=== PATIENT | female | born 1945 | race Caucasian/White ===

== ENCOUNTER → 2016-12-11 | Outpatient (CLI) | payer OTHER ==
[~2016-12-11] MED LIST: COZAAR 50 MG TA50 M2 PO; CRESTOR10 MG PO; FISH OIL 1,001000 M2 PO; LUTEIN 15 MG S1 EACH PO; UNICOMPLEX M TA1 TA1 PO; VITAMIN D1000 UNIT PO
--- NOTE | ~2016-12-11 | CARDNUC ---
[facility] [address] [place] [address] CARDIAC NUCLEAR IMAGING REPORT Name: NEETA BOYCE Room #: REG [facility]#: [id number] Admission: 12/11/16 Attend Phys: Zoran Renee Discharge: Date of : 41 Date of Service: 12/11/16 1637 Report #: [id number] THIS REPORT FOR: //name// CC: Zoran Villarreal DATE OF SERVICE: 12/11/2016 Myocardial perfusion imaging study using regadenoson DATE OF STUDY: 12/11/2016. PRIMARY CARE PHYSICIAN: Arsen Villarreal MD AUTOMATION ANALYST: Zoran Renee MD GENDER: Female. INDICATION: Dyspnea. CORONARY HISTORY: None. CARDIOVASCULAR RISK FACTORS: Age, hypertension, hyperlipidemia, and family history. CARDIAC MEDICATIONS: Include losartan, Pradaxa, and statin medication. TYPE OF STUDY: The patient underwent a SPECT study. STRESS PROTOCOL: A total of 0.4 mg of regadenoson was injected intravenously, followed by Cardiolite. The patient did not ambulate during the procedure. HEMODYNAMIC DATA: The resting heart rate was 51 beats per minute, with a blood pressure 150/70 mmHg. Following regadenoson, the heart rate increased to 75 beats per minute and the systolic blood pressure did not significantly change. The patient had symptoms consistent with regadenoson, but no chest discomfort. ELECTROCARDIOGRAM: The resting electrocardiogram reveals sinus rhythm, nonspecific T-wave abnormalities. Following regadenoson, there were no significant arrhythmias or ST segment changes. PERFUSION IMAGING: Myocardial perfusion imaging was performed using Cardiolite, 11.2 mCi for the resting images and 35.3 mCi for the stress images. This was a same-day rest-stress imaging protocol. Gated SPECT images were obtained. Comparison of the post-pharmacologic stress and rest images revealed a mild, fixed anterior defect. The gated portion of the study revealed normal global [facility] [address] [address] [place] [address] CARDIAC NUCLEAR IMAGING REPORT Name: DONATOGURPREETHALEYALEXNEETA Krystian Room #: REG [facility]#: [id number] Admission: 12/11/16 Attend Phys: Zoran Renee Discharge: Date of : 41 Date of Service: 12/11/16 1637 Report #: [id number] and segmental LV systolic function. The mild, fixed anterior defect probably represents a soft tissue artifact. IMPRESSION: 1. Clinical response, nondiagnostic. 2. Stress ECG response, nonischemic. 3. Perfusion imaging, nonischemic. 4. Ventricular function, normal. CONCLUSION: This study is of low probability for inducible ischemia or prior infarct. There is normal global and segmental LV systolic function. <ELECTRONICALLY SIGNED> By: Bakari Massey MD 12/12/16 0945 1637 1813 Bakari Massey MD /charis
== END ==
LOC: NUC 11:28
DX: R06.00 Dyspnea, unspecified (principal); I10 Essential (primary) hypertension; E78.5 Hyperlipidemia, unspecified

== ENCOUNTER 2017-04-08 06:37 | Observation (INO) | payer OTHER ==
[~2017-04-08] VITALS: Ht 0.5 cm; Wt 97.2 kg
--- NOTE | ~2017-04-08 | P ---
[facility] [place] [address] PROCEDURE REPORT Name: NEETA BOYCE Room #: 218-P [facility] M.R.#: [id number] Admission: 04/08/17 Attend Phys: Zoran Renee MD Discharge: Date of : 41 Report #: [id number] THIS REPORT FOR: //name// CC: Zoran Villarreal PROCEDURE: Pacemaker insertion. REASON FOR IMPLANTATION: 1. Sick sinus syndrome. 2. Tachycardia-bradycardia syndrome. 3. Paroxysmal atrial fibrillation. HISTORY OF PRESENT ILLNESS: The patient is a 71-year-old with a history of paroxysmal atrial fibrillation and since initiation of beta marianna and antiarrhythmic drug therapy, she has been having symptomatic bradycardia. She is here for pacemaker implantation. ANESTHESIA: The patient underwent MAC anesthesia with no anesthesia related complications. DESCRIPTION OF PROCEDURE: The patient underwent informed consent. We discussed the details of the procedure including the risks, which include, but not limited to bleeding, infection, vascular damage, cardiac perforation, and pneumothorax. She understood these risks and was willing to proceed. As such, the patient was brought to the EP laboratory in a fasting and sedated state and prepped and draped in a sterile fashion. The patient underwent a venogram showing patency of the left axillary vein. She did receive IV Ancef prior to initiation of the procedure. I injected lidocaine below the level of left clavicle. Incision was made. A pocket was created over the prepectoral fascia and then access was obtained twice in the left axillary vein using the extrathoracic approach with sheath positioned using the modified Seldinger technique. Next, leads were positioned in the right ventricular apex and right atrial appendage both with adequate pacing and sensing thresholds. The leads were sutured to the prepectoral fascia, connected to the device and then the pocket was irrigated with vancomycin solution and then closed in 3 layers using 2-0 for the deep layer, 3-0 for the middle layer, 4-0 for the subcuticular layer. Surgical glue was placed to the outer skin layer. Next, an incision was made at the area where the Medtronic implantable loop recorder had been previously placed. The device was removed from the pocket. The pocket was then closed in 1 layer and then surgical glue was placed to the outer layer. The patient awoke neurologically and hemodynamically intact. No complications and no significant bleeding. The implanted pacemaker was a [employer] model #[id number], serial #[id number], the atrial lead was a [employer] model #2088TC, 52 cm, serial #[id number] with a P-wave of 2 millivolts, pacing impedance of 510 ohms and a pacing threshold of 1.25 volts at 1 millisecond. The RV lead was a [facility] [address] [place] [address] PROCEDURE REPORT Name: NEETA BOYCE Room #: 218-P [facility] M.R.#: [id number] Admission: 04/08/17 Attend Phys: Zoran Renee MD Discharge: Date of : 41 Report #: [id number] [employer] model #2088TC, 58 cm, serial #[id number] with an R-wave of 7.5 millivolts, the pacing impedance of 540 ohms and the pacing threshold 0.75 volts at 0.4 milliseconds. The device was programmed to the DDDR 60-130 mode. CONCLUSIONS: 1. Successful pacemaker implantation. 2. Satisfactory atrial and ventricular pacing and sensing thresholds. 3. Successful explantation of a Medtronic implantable loop recorder. <ELECTRONICALLY SIGNED> By: Zoran Renee MD 04/08/17 1359 1032 1304 Zoran Renee MD /nt
--- NOTE | ~2017-04-08 | D ---
[facility] [place] [address] DISCHARGE SUMMARY Name: NEETA BOYCE Room #: 218-P [facility].RWarner#: [id number] Admission: 04/08/17 Attend Phys: Zoran Renee MD Discharge: Date of : 41 Report #: [id number] THIS REPORT FOR: //name// CC: Zoran Renee [facility] DISCHARGE DIAGNOSES: Atrial fibrillation, sick sinus syndrome, symptomatic bradycardia. PROCEDURES PERFORMED: Dual chamber pacemaker insertion. HISTORY OF PRESENT ILLNESS: The patient is a 71-year-old with history of paroxysmal AFib, who has developed sick sinus syndrome as we have uptitrated her antiarrhythmic drugs. She is here for dual chamber pacemaker insertion. Device implant was successful without complications. HOSPITAL COURSE: The patient was monitored overnight, received IV antibiotics. On telemetry, she remained in sinus rhythm with an atrial paced rhythm. The following day, her device was checked and her device check was normal except for diminishment in her P-wave size. Her chest x-ray showed stable lead position with no pneumothorax. As such, she was deemed stable for discharge home. She was instructed to increase her flecainide to 100 b.i.d. and start metoprolol 25 b.i.d. I instructed her to resume her Pradaxa on Saturday. She will follow up in 7-10 days for a device and wound check. Discharge instructions were reviewed. By: 0836 0920 Zoran Renee MD /charis
[2017-04-08 07:00] VITALS: BP 155/75
[2017-04-08 07:09] LABS: HEMATOCRIT 38.7 % (37.0-47.0); HEMOGLOBIN 12.9 gm/dL (12.0-15.0); MCH 30.5 pg (26.0-34.0); MCHC 33.4 g/dL (28.0-37.0); MCV 91.5 fL (80.0-100.0); PLATELET COUNT 239 thou/uL (150-400); RBC 4.23 mil/uL (4.20-5.00); RDW 13.8 % (10.5-14.5); WBC 4.7 thou/uL (4.0-11.0)
[2017-04-08 07:12] LABS: MANUAL DIFF YES
[2017-04-08 07:18] LABS: CALCIUM 9.7 mg/dL (8.5-10.1); POTASSIUM 3.9 mmol/L (3.5-5.1)
[2017-04-08 07:22] LABS: APTT 24.7 Seconds (24.5-32.8); PROTIME 10.2 Seconds (9.3-11.4)
[2017-04-08 07:23] LABS: ALBUMIN 3.9 g/dL (3.4-5.0); TOTAL BILIRUBIN 0.5 mg/dL (<0.1-1.0); TOTAL PROTEIN 7.7 g/dL (6.4-8.2)
[2017-04-08 07:42] LABS: ABSOLUTE NEUTROPHILS 2.2 thou/uL (1.4-8.2); ANISOCYTOSIS 1+; OVALOCYTES 1+; TOTAL CELL COUNT 100
[2017-04-08 11:44] VITALS: BP 179/97
[2017-04-08 20:03] VITALS: BP 127/66
[2017-04-08 23:21] VITALS: BP 136/78
[2017-04-09 04:30] VITALS: BP 131/76
[2017-04-09 07:20] VITALS: BP 154/77
[2017-04-09] MEDS ORDERED: TAMBOCOR 100 M100 M1 PO (08:22)
[2017-04-09] MEDS ORDERED: LOPRESSOR25 PO (08:23)
[2017-04-09 09:04] VITALS: BP 154/77
== END 2017-04-09 10:55 | disposition home or self-care (01) ==
LOC: CV 06:37 → 2N 11:18
PROVIDERS: Internal Medicine Cardiovascular Disease
DX: I49.5 Sick sinus syndrome (principal); I48.0 Paroxysmal atrial fibrillation; I49.9 Cardiac arrhythmia, unspecified; E78.5 Hyperlipidemia, unspecified; I10 Essential (primary) hypertension
CPT/HCPCS: 70005

== ENCOUNTER → 2017-11-26 | Outpatient (CLI) | payer OTHER ==
[~2017-11-26] MED LIST changes: +LOPRESSOR25 PO; +TAMBOCOR 100 M100 M1 PO
== END ==
LOC: RAD 14:43
DX: M47.894 Other spondylosis, thoracic region (principal)

== ENCOUNTER → 2020-05-11 | Outpatient (CLI) | payer OTHER | LOC: SJCVC 14:37 | PROVIDERS: ATTEND Internal Medicine Cardiovascular Disease | DX: Z45.018 Encounter for adjustment and management of other part of cardiac pacemaker (principal); I48.0 Paroxysmal atrial fibrillation; I49.5 Sick sinus syndrome; G47.33 Obstructive sleep apnea (adult) (pediatric); E78.00 Pure hypercholesterolemia, unspecified; J44.9 Chronic obstructive pulmonary disease, unspecified; R94.31 Abnormal electrocardiogram [ECG] [EKG]; Z79.899 Other long term (current) drug therapy; Z87.891 Personal history of nicotine dependence ==

== ENCOUNTER → 2020-09-20 | Outpatient (CLI) | payer OTHER | LOC: RAD 12:06 | PROVIDERS: ATTEND Pediatrics | DX: J44.9 Chronic obstructive pulmonary disease, unspecified (principal); R06.00 Dyspnea, unspecified ==

== ENCOUNTER → 2021-05-16 | Outpatient (CLI) | payer OTHER | LOC: SJCVC 11:42 | PROVIDERS: ATTEND Internal Medicine Cardiovascular Disease | DX: I48.0 Paroxysmal atrial fibrillation (principal); I47.1 Supraventricular tachycardia; R00.1 Bradycardia, unspecified; G47.33 Obstructive sleep apnea (adult) (pediatric); J44.9 Chronic obstructive pulmonary disease, unspecified; I10 Essential (primary) hypertension; E78.00 Pure hypercholesterolemia, unspecified; Z95.0 Presence of cardiac pacemaker; Z79.899 Other long term (current) drug therapy; Z87.891 Personal history of nicotine dependence; Z72.89 Other problems related to lifestyle ==

== ENCOUNTER → 2021-06-27 | Outpatient (CLI) | payer OTHER ==
[~2021-06-27] MED LIST changes: +FLECAINIDE ACET50 M2 PO; +PRADAXA150 MG PO
[2021-06-27 10:02] LABS: ABSOLUTE NEUTROPHILS 3.4 thou/uL (1.4-8.2); BASOPHILS 0.8 % (0.0-2.0); EOSINOPHILS 2.2 % (0.0-3.0); HEMATOCRIT 37.1 % (37.0-47.0); HEMOGLOBIN 12.5 gm/dL (12.0-15.0); LYMPHOCYTES 24.5 % (24.0-44.0); MCH 31.3 pg (26.0-34.0); MCHC 33.7 g/dL (28.0-37.0); MCV 92.7 fL (80.0-100.0); MONOCYTES 13.6 % (1.0-8.0); PLATELET COUNT 276 thou/uL (150-400); POLYS 58.9 % (36.0-66.0); WBC 5.7 thou/uL (4.0-11.0)
[2021-06-27 10:22] LABS: ALBUMIN 3.7 g/dL (3.4-5.0); CALCIUM 9.8 mg/dL (8.5-10.1); CREATININE 1.1 mg/dL (0.6-1.0); POTASSIUM 4.2 mmol/L (3.5-5.1); TOTAL BILIRUBIN 0.6 mg/dL (0.2-1.0); TOTAL PROTEIN 7.2 g/dL (6.4-8.2)
== END ==
LOC: CAT 09:21
PROVIDERS: ATTEND Internal Medicine Cardiovascular Disease
DX: I25.10 Atherosclerotic heart disease of native coronary artery without angina pectoris (principal); M47.814 Spondylosis without myelopathy or radiculopathy, thoracic region; I48.91 Unspecified atrial fibrillation; Z95.0 Presence of cardiac pacemaker

== ENCOUNTER 2021-06-29 06:30 | Observation (INO) | payer OTHER ==
[~2021-06-29] VITALS: Ht 172.7 cm; Wt 86.2 kg
[~2021-06-29 06:30] MED LIST changes: -FLECAINIDE ACET50 M2 PO; -PRADAXA150 MG PO
[2021-06-29 07:31] VITALS: BP 128/60
[2021-06-29] MEDS ORDERED: PRADAXA150 MG PO (07:56)
[2021-06-29] MEDS ORDERED: FLECAINIDE ACET50 M2 PO (07:56)
[2021-06-29 08:14] LABS: ABSOLUTE NEUTROPHILS 3.3 thou/uL (1.4-8.2); BASOPHILS 0.5 % (0.0-2.0); EOSINOPHILS 2.5 % (0.0-3.0); HEMATOCRIT 35.8 % (37.0-47.0); LYMPHOCYTES 20.9 % (24.0-44.0); MCH 30.8 pg (26.0-34.0); MCHC 33.4 g/dL (28.0-37.0); MCV 92.4 fL (80.0-100.0); MONOCYTES 14.1 % (1.0-8.0); PLATELET COUNT 260 thou/uL (150-400); RBC 3.88 mil/uL (4.20-5.00); RDW 13.9 % (10.5-14.5); WBC 5.2 thou/uL (4.0-11.0)
[2021-06-29 08:23] LABS: CALCIUM 9.3 mg/dL (8.5-10.1); CREATININE 1.1 mg/dL (0.6-1.0); POTASSIUM 4.1 mmol/L (3.5-5.1)
[2021-06-29 08:27] LABS: APTT 24.8 Seconds (24.5-32.8); INR 1.01
[2021-06-29 08:29] LABS: ALBUMIN 3.6 g/dL (3.4-5.0); TOTAL BILIRUBIN 0.6 mg/dL (0.2-1.0)
[2021-06-29 18:00] VITALS: BP 123/68
--- NOTE | 2021-06-29 18:25 | NUR ---
PT ARRIVED TO UNIT FROM CV HOLDING AT 1750. PT A/O X 4. ORIENTED TO ROOM AND UNIT. PLACED ON TELE MONITOR AND UPDATED ON POC. AFIB ABLATION COMPLETED- HEMOSTASIS OBTAINED AT 1230. PT OFF BEDREST. VSS. GROIN SITE DRESSING C/D/I, NO HEMATOMA. WILL CONT TO MONITOR.
[2021-06-29 20:15] VITALS: BP 113/60
[2021-06-30 00:05] VITALS: BP 146/80
[2021-06-30 04:45] VITALS: BP 120/70
--- NOTE | 2021-06-30 05:04 | NUR ---
PT IS ALERT AND ORIENTED X4. LUNGS ARE CLEAR. ON ROOM AIR. NO EDEMA NOTED 2/2 PULSES NOTED. UP AD MANISH IN ROOM. RIGHT GROIN SITE CLEAN DRY AND INTACT NO EDMA NOTED. DENIES ANY PAIN WHEN ASKED. ONGOING NURISNG CARE. AND CALL LIGHT WITHIN REACH IF NEEDS NURSING ASSISTANCE PER STAFF.
[2021-06-30 08:45] VITALS: BP 165/82
--- NOTE | 2021-06-30 09:20 | NUR ---
cm completed the initial assessment. pt lives in [facility] in [facility] that has an elevator. pt is independent with adls. pt is active, as evidenced by, "i lead an exercise class." pt denies hx with hh or snf. pt uses no dmes. cm to cont to follow to assist w/ dc plan as needed.
[2021-06-30 10:21] VITALS: BP 165/82
[2021-06-30 10:49] VITALS: BP 165/82
--- NOTE | 2021-07-03 15:45 | P ---
[facility] [place] [address] PROCEDURE REPORT Name: NEETA BOYCE Room #: 218-P [facility] Natasha Caraballo#: [id number] Admission: 06/29/21 Attend Phys: Zoran Renee MD Discharge: 06/30/21 Date of : 41 Report #: [id number] THIS REPORT FOR: cc: Arsen Villarreal MD, [place] S. MD Couchonnal, Luis F. MD ~ DATE OF SERVICE: 06/30/2021 ATRIAL FIBRILLATION AND SVT ABLATION PREOPERATIVE DIAGNOSES: 1. Paroxysmal fibrillation. 2. Sick sinus syndrome, status post pacemaker implantation. POSTOPERATIVE DIAGNOSES: 1. Paroxysmal atrial fibrillation. 2. Sick sinus syndrome, status post pacemaker implantation. 3. Typical AV marylou reentrant tachycardia. PROCEDURE PERFORMED: 1. Atrial fibrillation ablation -- CPT code 90112. 2. Program stimulation pacing after IV drug infusion, CPT code 58125. 3. 3D mapping, CPT code 28066. 4. Intracardiac echo. 5. Second pathway ablation -- CPT code 47658. 6. Preprocedural pacemaker reprogramming, CPT code 93364. 7. Post-procedural pacemaker reprogramming, CPT code 27591. HISTORY: The patient occlusive is a 75-year-old female with history of paroxysmal atrial fibrillation as well as sick sinus syndrome, status post [employer] pacemaker implantation several years ago. The patient has been having increased episodes of AFib and has intolerance to flecainide who is here for AFib ablation. ANESTHESIA: The patient underwent general anesthesia with no anesthesia related complications. DESCRIPTION OF PROCEDURE: The patient underwent informed consent. We discussed the details of the procedure including the risks, which include but not limited to bleeding, infection, vascular damage, cardiac perforation, damage to the menominee conduction system requiring permanent pacemaker. She understood these risks and is willing to proceed. The patient was brought to the EP laboratory in a fasting and sedated state and prepped and draped in a sterile fashion. Her pacemaker was reprogrammed to AAI 60 mode. Next, I obtained access to the right femoral vein x 3, placing an 8, 9 [facility] [address] [place] [address] PROCEDURE REPORT Name: CARLINEETA Boland Room #: 218-P [facility]#: [id number] Admission: 06/29/21 Attend Phys: Zoran Renee MD Discharge: 06/30/21 Date of : 41 Report #: [id number] and 7-Azerbaijani short sheath using the modified Seldinger technique. Next, under fluoroscopy, a decapolar catheter was placed in the coronary sinus for left atrial pacing and recording. An ICE catheter was placed in the right atrium. Intracardiac ultrasound demonstrated that there were two left and two right pulmonary veins. These images were merged with the cardiac CT scan. The patient was in sinus rhythm during the procedure. The patient was systemically heparinized and a transseptal was performed using an SL1 sheath and a [place]araka needle. This was straightforward and then I exchanged cryosheath and placed the Lasso catheter into the left atrium. Next, a 3D geometry of the left atrium was created using the CARTO. Next, I started by isolating the pulmonary veins using the cryoablation balloon. The left superior pulmonary vein underwent a 4-minute freeze and isolated at 30 seconds. The left inferior pulmonary vein underwent a 4-minute freeze and isolated at 50 seconds, the right superior pulmonary vein underwent initial 85 second freeze, but the phrenic nerve weakened, so I came off. I moved to the right inferior pulmonary vein and performed a 4-minute freeze and this vein isolated at 50 seconds. I came back to the right superior pulmonary vein, which had returned to full strength and I performed a single 3-minute freeze. It appears that the vein had already isolated during the first freeze. Next, I started creating a repeat voltage map of the left atrium, which showed all pulmonary veins were isolated, but catheter manipulation resulted in episodes of SVT. I was able to move my decapolar catheter back in the coronary sinus and this appeared to be consistent with typical AV marylou reentrant tachycardia. I therefore removed my ICE catheter and placed an RV catheter into the right ventricle. I therefore performed a basic EP study and the patient had a inducible typical AV marylou reentry tachycardia. Tachycardia cycle length was 500 milliseconds, septal VA time was 35 milliseconds and a VAHV response was demonstrated multiple times. Her SVT was easily inducible and actually very difficult to terminate even with ventricular pacing down to 300 milliseconds. She would keep going back into it. Therefore, I had to pace the atrium at around 250 milliseconds just to terminate this and during ablation, she would easily go into AVNRT as well. TYPICAL AV MARYLOU REENTRANT TACHYCARDIA ABLATION: Next, I removed the cryosheath and exchanged this for a 14-Azerbaijani short sheath and placed in SR0 sheath and a 4 mm [employer] Aranda ablation catheter into the right atrium. Detailed geometry of the right atrium was created and ablation was performed at 50 de leon and 55 degrees. My first three lesions gave me very good junctionals and therefore, I performed testing; however, she was easily inducible again. I performed 4 additional ablation lesions and again these all had great junctional response that were slow and it appeared that we were burning at the perfect spot. I did perform testing again and I could not induce SVT, but she was having double AV marylou echoes. Therefore, I performed a 3 additional ablation lesions at essentially the same spot each with great junctional responses again. A basic EP study was therefore performed again and AV block was noted at 420 [facility] [address] [place] [address] PROCEDURE REPORT Name: NEETA BOYCE Room #: 218-P [facility] Natasha Caraballo#: [id number] Admission: 06/29/21 Attend Phys: Zoran Renee MD Discharge: 06/30/21 Date of : 41 Report #: [id number] milliseconds. AV marylou ERP was 340 milliseconds at [address] cycle length. VA block was noted at 410 milliseconds. Ventricular ERP was noted at 260 milliseconds at a [address] cycle length. Isoproterenol infusion was initiated at 1 mcg per minute and aggressive pacing was again performed. AV block was noted at 290 milliseconds. Atrial ERP was noted at 260 milliseconds at a [address] cycle length. We paced for approximately 30 minutes and she was no longer inducible. As such, the procedure was concluded, she was in sinus rhythm, sinus cycle length of 815 milliseconds, CT interval 185 milliseconds, QRS duration 81 milliseconds, QT interval 450 milliseconds. Catheters and sheaths were pulled. Hemostasis obtained. The patient awoke neurologically and hemodynamically intact. No complications. No significant bleeding. CONCLUSION: 1. Successful atrial fibrillation ablation with isolation of the pulmonary veins. 2. Successful ablation of typical AV maryolu reentrant tachycardia. 3. Normal SA marylou function. 4. Normal AV marylou function. 5. Normal His-Purkinje function. 6. Successful pre and post-pacemaker reprogramming. <ELECTRONICALLY SIGNED> By: Zoran Renee MD 07/03/21 1545 1058 2246 Zoran Renee MD /nt
== END 2021-06-30 10:54 | disposition home or self-care (01) ==
LOC: CATH 06:30 → 2N 18:00
PROVIDERS: ADMIT Internal Medicine Cardiovascular Disease; ATTEND Internal Medicine Cardiovascular Disease
DX: I48.0 Paroxysmal atrial fibrillation (principal); Z20.822 Contact with and (suspected) exposure to COVID-19; Z88.8 Allergy status to other drugs, medicaments and biological substances; Z79.899 Other long term (current) drug therapy
CPT/HCPCS: 62110; 62900; 65020; 70005

== ENCOUNTER → 2021-09-27 | Outpatient (CLI) | payer OTHER ==
[~2021-09-27] MED LIST changes: +FLECAINIDE ACET50 M2 PO; +PRADAXA150 MG PO
== END ==
LOC: SJCVC 13:58
PROVIDERS: ATTEND Internal Medicine Cardiovascular Disease
DX: I49.8 Other specified cardiac arrhythmias (principal); I48.0 Paroxysmal atrial fibrillation; I47.1 Supraventricular tachycardia; I49.5 Sick sinus syndrome; J44.9 Chronic obstructive pulmonary disease, unspecified; I10 Essential (primary) hypertension; G47.33 Obstructive sleep apnea (adult) (pediatric); E78.00 Pure hypercholesterolemia, unspecified; Z79.899 Other long term (current) drug therapy; Z95.0 Presence of cardiac pacemaker; Z72.89 Other problems related to lifestyle; Z87.891 Personal history of nicotine dependence